=== PATIENT | male | born 1985 | race Hispanic/Latino ===

== ENCOUNTER 2017-08-20 09:09 | Emergency (ER) | payer MEDICAID ==
[2017-08-20 09:27] VITALS: BMI 23.1
[2017-08-20 09:31] VITALS: O2SAT 98
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
[2017-08-20 09:49] LABS: BASO # 0.1 K/uL (0.0-0.2); BASO % 0.7 % (0.0-2.0); EOS # 0.4 K/uL (0.0-0.7); EOS % 4.1 % (0.0-4.0); HEMOGLOBIN 15.4 g/dL (12.0-18.0); LYMPH # 2.5 K/uL (1.0-4.3); LYMPH % 24.8 % (20.0-40.0); MEAN CELL VOLUME 91.8 fl (80.0-94.0); MEAN CORPUSCULAR HEMOGLOBIN 31.4 pg (27.0-31.0); MEAN CORPUSCULAR HGB CONC 34.3 g/dL (33.0-37.0); MEAN PLATELET VOLUME 8.8 fl (7.2-11.7); MONO # 1.2 K/uL (0.0-0.8); MONO % 11.9 % (0.0-10.0); NEUT # 5.8 K/uL (1.8-7.0); NEUT % 58.5 % (50.0-75.0); RBC 4.89 Mil/uL (4.40-5.90); RED CELL DISTRIBUTION WIDTH 14.2 % (11.5-14.5)
[2017-08-20 10:02] LABS: ALB/GLOB RATIO 1.3 (1.0-2.1); ALBUMIN 4.5 g/dL (3.5-5.0); ALT/SGPT 37 U/L (21-72); AST/SGOT 45 U/L (17-59); BLOOD UREA NITROGEN 15 mg/dl (9-20); CALCIUM 9.5 mg/dL (8.4-10.2); GFR AFRICAN-AMERICAN > 60; GFR NON-AFRICAN AMERICAN > 60
--- NOTE | 2017-08-20 10:30 | CT ---
PROCEDURE: CT Lumbar Spine without contrast HISTORY: RLE numbness/weakness COMPARISON: None. TECHNIQUE: Axial computed tomography images were obtained of the lumbar spine without the use of intravenous contrast. Coronal and sagittal reformatted images were created and reviewed. Radiation dose: Total exam DLP = 519.69 mGy-cm. This CT exam was performed using one or more of the following dose reduction techniques: Automated exposure control, adjustment of the mA and/or kV according to patient size, and/or use of iterative reconstruction technique. FINDINGS: VERTEBRAE: There is normal alignment of the lumbar vertebral bodies. There is normal lumbar lordosis. There is no acute fracture, spondylolysis or spondylolisthesis. There is normal bone mineralization. DISCS/SPINAL CANAL/NEURAL FORAMINA: Evaluation of the discs and spinal canal is limited on noncontrast CT examination. Allowing for this, L1-2: No large disc herniation, neural foraminal or spinal canal stenosis. L2-3: Mild posterior disc bulge without central spinal canal stenosis. No neural foraminal narrowing. L3-4: Diffuse posterior disc bulge in conjunction and mild ligamentum flavum infolding without central spinal canal stenosis. Mild bilateral facet arthropathy contribute to mild neural foraminal narrowing. L4-5: Diffuse posterior disc bulge without central spinal canal stenosis. Mild bilateral facet arthropathy contribute to mild neural foraminal narrowing. L5-S1: Broad-based central disc protrusion without central spinal canal stenosis. Also noted is right foraminal disc protrusion. Mild bilateral facet arthropathy contribute to moderate to severe right and mild left neural foraminal narrowing. PARASPINAL SOFT TISSUES: Unremarkable. OTHER FINDINGS: None. IMPRESSION: 1. No acute fracture, spondylolysis or spondylolisthesis. 2. Multilevel degenerative disc disease, worse at L5-S1 with a broad-based central disc protrusion without central spinal canal stenosis. Also noted is right foraminal disc protrusion and mild bilateral facet arthropathy with resultant moderate to severe right and mild left neural foraminal.
[2017-08-20] MEDS ORDERED: Sodium Chloride 0.9% 1,000 ML IV STA (10:36)
--- NOTE | 2017-08-20 13:39 | MRI ---
PROCEDURE: MR LUMBAR SPINE WITHOUT CONTRAST HISTORY: RLE weakness COMPARISON: CT lumbar spine without contrast performed earlier the same day. TECHNIQUE: Multiecho multiplanar sequences were performed through the lumbar spine without the use of intravenous contrast. FINDINGS: There is normal alignment of the lumbar vertebral bodies. There is normal lumbar lordosis. There is no acute fracture, spondylolysis or spondylolisthesis. Bone marrow signal is within normal limits. The conus medullaris terminates at a normal level and the nerve roots of cauda equina are normal. The paraspinous soft tissues are normal. Imaged portion of the retroperitoneum is within normal limits. T12-L1: No disc herniation, spinal canal stenosis or neural foraminal narrowing. L1-2: No large disc herniation, spinal canal stenosis or neural foraminal narrowing. L2-3: There is a small node at the inferior endplate of L2 vertebral body. There is mild posterior disc bulge without central spinal canal stenosis. No neural foraminal narrowing. L3-4: No disc herniation, spinal canal stenosis or neural foraminal narrowing. L4-5: Mild diffuse posterior disc bulge without central spinal canal stenosis. Moderate bilateral facet arthropathy contribute to mild neural foraminal narrowing. L5-S1: Diffuse posterior disc bulge without central spinal canal stenosis. Also noted is superimposed small right foraminal disc protrusion which abuts the exiting right L5 nerve root. Moderate bilateral facet arthropathy contribute to moderate neural foraminal narrowing. OTHER FINDINGS: None. IMPRESSION: 1. No acute fracture, spondylolysis or spondylolisthesis. 2. Mild degenerative disc disease at L4-5 and L5-S1, worse at L5-S1 with a diffuse posterior disc bulge and superimposed small right foraminal disc protrusion which abuts the exiting right L5 nerve root, and noted is moderate right neural foraminal narrowing. No central spinal canal stenosis.
[2017-08-20 14:35] VITALS: BP 126/79; PULSE 84; RESP 14; TEMP 98
--- NOTE | 2017-08-21 07:20 | CARD ---
APPROVED REPORT EKG Measurement Heart [id number] <Conclusion> Normal sinus rhythm Possible Left atrial enlargement Borderline ECG
== END 2017-08-20 14:36 | disposition home or self-care (01) ==
LOC: H.ER 09:09
DX: G54.4 Lumbosacral root disorders, not elsewhere classified (principal); M51.26 Other intervertebral disc displacement, lumbar region; Z88.0 Allergy status to penicillin
CPT/HCPCS: 72131; 72148; 80053; 82550; 82607; 85025; 93005; 99285; J7040